=== PATIENT | female | born 1960 | race Two or more races ===

== ENCOUNTER 2017-09-03 01:50 | Emergency (ER) | payer BC, MEDICAID ==
[~2017-09-03] VITALS: Ht 154.9 cm; Wt 67.1 kg
[~2017-09-03 01:50] MED LIST: ESOM20CA PO
[2017-09-03] MEDS ORDERED: ZOLP10TA PO (04:49)
[2017-09-03 04:52] VITALS: BP 123/51
== END 2017-09-03 05:01 | disposition home or self-care (01) ==
LOC: ER 01:51
DX: G47.00 Insomnia, unspecified (principal); G89.29 Other chronic pain; Z79.899 Other long term (current) drug therapy; Z56.0 Unemployment, unspecified; Z60.2 Problems related to living alone
CPT/HCPCS: 99283